=== PATIENT | female | born 1980 | race Caucasian/White ===

== ENCOUNTER 2016-11-02 09:45 | Emergency (ER) | payer OTHER ==
[2016-11-02 10:45] LABS: BASOPHIL 0.3 % (0-2); EOSINOPHIL 3.4 % (0-5); HCT 40.1 % (37.0-47.0); HGB 13.5 g/dl (12.5-16.0); LYMPHOCYTE 35.7 % (15-48); MCH 31.6 pg (25.0-31.0); MCHC 33.7 g/dL (32.0-36.0); MCV 93.9 fL (78.0-100.0); MONOCYTE 6.8 % (0-12); MPV 11.3 fL (6.0-9.5); NEUTROPHIL 53.8 % (41-80); PLT 235 K/uL (150-400); RBC 4.27 M/uL (4.20-5.40); RDW 13.1 % (11.5-14.0); WBC 6.7 K/uL (4.0-10.5)
[2016-11-02 11:04] LABS: ALBUMIN 4.8 g/dL (3.5-5.0); BILIRUBIN - TOTAL 0.4 mg/dL (0.1-1.0); GLOBULIN (CALCULATION) 2.6 g/dL (2.2-4.2); POTASSIUM 4.2 mmol/L (3.5-5.1); TOTAL PROTEIN 7.4 g/dL (6.4-8.3)
== END 2016-11-02 12:23 | disposition home or self-care (01) ==
LOC: FER 09:45
PROVIDERS: Emergency Medicine
DX: R07.89 Other chest pain (principal); F17.210 Nicotine dependence, cigarettes, uncomplicated; I10 Essential (primary) hypertension
CPT/HCPCS: 36415; 71010; 80053; 84484; 85025; 85379; 93005

== ENCOUNTER 2021-02-14 22:34 | Emergency (ER) | payer OTHER ==
[2021-02-14 23:50] LABS: BASOPHIL 0.2 % (0-2); BILIRUBIN 1+ mg/dL (NEGATIVE); BLOOD 2+ Ery/uL (NEGATIVE); CLARITY CLEAR (CLEAR); COLOR YELLOW (YELLOW); EOSINOPHIL 0.8 % (0-5); GLUCOSE (U) NORMAL (NORMAL); HGB 12.4 g/dl (12.5-16.0); LEUKOCYTES TRACE Leu/uL (NEGATIVE); LYMPHOCYTE 13.9 % (15-48); MCH 31.8 pg (25.0-31.0); MCHC 33.5 g/dL (32.0-36.0); MCV 94.9 fL (78.0-100.0); MONOCYTE 7.4 % (0-12); MPV 11.2 fL (6.0-9.5); NEUTROPHIL 77.4 % (41-80); NITRITE NEGATIVE (NEGATIVE); NRBC 0; PLT 205 K/uL (150-400); PROTEIN 1+ mg/dL (NEGATIVE); RDW 12.7 % (11.5-14.0); SPECIFIC GRAVITY >=1.030 (1.001-1.030); UROBILINOGEN 0.2 mg/dL (0.2-1.0)
[2021-02-14 23:57] LABS: BACTERIA 3+; URINARY WBC 20-50
[2021-02-14 23:58] LABS: MUCOUS MODERATE; SQUAMOUS EPITHELIAL CELLS 20-50
[2021-02-15 00:01] LABS: ALBUMIN 3.7 g/dL (3.4-5.0); BUN/CREAT RATIO (CALC) 9.3 RATIO; CREATININE 0.86 mg/dL (0.51-0.95); GLOBULIN (CALCULATION) 3.4 g/dL; TOTAL PROTEIN 7.1 g/dL (6.4-8.2)
[2021-02-15] MEDS ORDERED: ONDANSETRON ODT4 MG SL (03:29)
[2021-02-15] MEDS ORDERED: IMITREX50 MG PO (03:29)
[2021-02-15] MEDS ORDERED: DIFLUCAN150 MG PO (03:29)
[2021-02-15] MEDS ORDERED: BACTRIM DS TAB1 EACH PO (03:29)
== END 2021-02-15 04:10 | disposition home or self-care (01) ==
LOC: FER 22:34
PROVIDERS: Emergency Medicine Emergency Medical Services
DX: N30.00 Acute cystitis without hematuria (principal); R19.7 Diarrhea, unspecified; E87.6 Hypokalemia; R51.9 Headache, unspecified; I10 Essential (primary) hypertension; F17.290 Nicotine dependence, other tobacco product, uncomplicated; Z79.899 Other long term (current) drug therapy
CPT/HCPCS: 36415; 74022; 80053; 81001; 83605; 83690; 85025; 96372; C9113; J1885; J2405; J3030; J7030